=== PATIENT | female | born 1990 | race Caucasian/White ===

== ENCOUNTER 2018-12-15 20:52 | Emergency (ER) | payer OTHER ==
[~2018-12-15] VITALS: Ht 162.6 cm; Wt 79.5 kg
[~2018-12-15 20:52] MED LIST: BCP PO; GILDESS FE 1.5/1 TAB PO; IMITREX 25MG TA25 MG PO; NO HOME MEDICATIONS; PERCOCET 325 MG1 TA2 PO
[2018-12-15 21:06] VITALS: TEMP 97.5
[2018-12-15 21:16] LABS: COLLECTION METHOD CLEAN CATCH
[2018-12-15 21:24] LABS: PH 7 (5-8); SQUAMOUS EPITHELIAL 0-2 /hpf; URINE APPEARANCE Clear; URINE BACTERIA None Seen /hpf; URINE BILIRUBIN Negative (NEGATIVE); URINE BLOOD Negative (NEGATIVE); URINE COLOR Straw; URINE GLUCOSE Negative (NEGATIVE); URINE KETONE Negative (NEGATIVE); URINE LEUKOCYTE ESTERASE Negative (NEGATIVE); URINE NITRATE Negative (NEGATIVE); URINE PROTEIN(semi-quant) Negative (NEGATIVE); URINE RBC None Seen /hpf; URINE UROBILINOGEN Negative (NEGATIVE)
[2018-12-15 22:43] LABS: BASO % 0.4 % (0.0-2.0); EOS % 0.5 % (0-4.0); GRAN # 4.4 (1.4-6.5); GRAN % 52.9 % (42.2-75.2); HEMATOCRIT 40.7 % (37.0-47.0); HEMOGLOBIN 13.1 g/dl (12.5-16.0); LYMPH # 2.8 (1.2-3.4); LYMPH % 33.9 % (20.0-51.0); MEAN CELL VOLUME 84 fl (80.0-100.0); MEAN CORPUSCULAR HEMOGLOBIN 27 pg (27.0-31.0); MEAN CORPUSCULAR HGB CONC 32 g/dl (33.0-37.0); MEAN PLATELET VOLUME 9.1 fl (7.4-10.4); MONO % 12.1 % (1.7-9.3); PLATELET COUNT 344 K/mm3 (130-400); RED BLOOD COUNT 4.86 M/mm3 (4.10-5.30); REDCELL DISTRIBUTION WIDTH-CV 12.8 % (11.5-14.5)
[2018-12-15] MEDS ORDERED: PRILOSEC 20MG20 MG PO (22:44)
[2018-12-15 22:58] LABS: ALANINE AMINOTRANSFERASE 12 U/L (9-52); ALBUMIN 4.7 gm/dL (3.5-5.0); ALKALINE PHOSPHATASE 98 U/L (50-136); ANION GAP 10 mmol/L (7-16); AST,SGOT 27 U/L (15-37); BILIRUBIN,TOTAL 0.2 mg/dL (0.0-1.0); BLOOD UREA NITROGEN 13 mg/dL (7-17); CALCIUM 9.5 mg/dL (8.4-10.2); CARBON DIOXIDE 25 mmol/L (22-30); CHLORIDE 105 mmol/L (98-107); CREATININE, serum 0.61 mg/dL (0.52-1.25); GLUCOSE 102 mg/dL (74-106); LIPASE 96 U/L (23-300); POTASSIUM 3.9 mmol/L (3.4-5.0); SODIUM 139 mmol/L (137-145); TOTAL PROTEIN 8.5 gm/dL (6.4-8.2)
[2018-12-15 23:00] LABS: C-REACTIVE PROTEIN < 0.5 mg/dL (0.0-0.9)
[2018-12-15] MEDS ORDERED: NORCO 325 MG-51 TAB PO (23:54)
[2018-12-16 01:10] VITALS: BP 121/83; PULSE 93
== END 2018-12-16 01:55 | disposition home or self-care (01) ==
LOC: COL.ER 20:52
PROVIDERS: Emergency Medicine; Family Medicine
DX: K21.9 Gastro-esophageal reflux disease without esophagitis (principal); K80.50 Calculus of bile duct without cholangitis or cholecystitis without obstruction; K27.9 Peptic ulcer, site unspecified, unspecified as acute or chronic, without hemorrhage or perforation; Z98.890 Other specified postprocedural states; Z90.89 Acquired absence of other organs
CPT/HCPCS: J1885; J2405; J7030; Q9967

== ENCOUNTER 2018-12-18 06:41 | Day surgery (SDC) | payer OTHER ==
[~2018-12-18] VITALS: Ht 162.6 cm; Wt 80.6 kg
[~2018-12-18 06:41] MED LIST changes: +NORCO 325 MG-51 TAB PO; +PRILOSEC 20MG20 MG PO
[2018-12-18 07:06] VITALS: BP 133/81; PULSE 102; TEMP 97.2
[2018-12-18 08:30] VITALS: BP 126/91; PULSE 105; TEMP 98.3
--- NOTE | 2018-12-18 08:30 | NUR ---
TO [facility]AY 2 VIA CART FROM [facility] PT WALKED TO CHAIR, FAMILY IN ROOM, STATES SLIGHTLY NAUSEATED, WILL CON'T TO MONITOR, CALL LIGHT IN REACH
[2018-12-18 08:45] VITALS: BP 122/81; PULSE 100
[2018-12-18 09:00] VITALS: BP 118/68; PULSE 102
--- NOTE | 2018-12-18 09:00 | NUR ---
SIPS ON WATER, DECLINES SNACK
[2018-12-18 09:15] VITALS: BP 122/80; PULSE 95
--- NOTE | 2018-12-18 09:15 | NUR ---
DR PEÑA SEE PT AND FAMILY, IV D'CD INTACT, PT UP AND DRESSED
--- NOTE | 2018-12-18 09:30 | NUR ---
DISCHARGE INST. GIVEN WITH VERBAL UNDERSTANDNG, OFFICE WILL CALL ON APPT FOR HIDDA SCAN. PT DISCHARGED VIA W/C TO CAR
== END 2018-12-18 09:35 | disposition home or self-care (01) ==
LOC: SDCO 06:41
DX: K21.9 Gastro-esophageal reflux disease without esophagitis (principal)
CPT/HCPCS: J2250; J2405; J3010; J7030

== ENCOUNTER → 2018-12-25 | Outpatient (CLI) | payer OTHER | LOC: COL.RAD 06:41 | DX: R10.11 Right upper quadrant pain (principal) | CPT/HCPCS: A9537 ==

== ENCOUNTER 2019-01-02 11:59 | Emergency (ER) | payer OTHER ==
[~2019-01-02] VITALS: Ht 162.6 cm; Wt 79.5 kg
[2019-01-02 12:10] VITALS: TEMP 98.2
[2019-01-02 12:52] LABS: COLLECTION METHOD CLEAN CATCH
[2019-01-02 12:59] LABS: PH 7 (5-8); SQUAMOUS EPITHELIAL 0-2 /hpf; URINE APPEARANCE Clear; URINE BACTERIA Rare /hpf; URINE BILIRUBIN Negative (NEGATIVE); URINE BLOOD Negative (NEGATIVE); URINE COLOR Straw; URINE GLUCOSE Negative (NEGATIVE); URINE KETONE Negative (NEGATIVE); URINE LEUKOCYTE ESTERASE Negative (NEGATIVE); URINE NITRATE Negative (NEGATIVE); URINE PROTEIN(semi-quant) Negative (NEGATIVE); URINE RBC 0-2 /hpf; URINE UROBILINOGEN Negative (NEGATIVE)
[2019-01-02 13:09] LABS: BASO % 0.4 % (0.0-2.0); EOS # 0.1 (0.0-0.7); EOS % 0.5 % (0-4.0); GRAN # 6.4 (1.4-6.5); GRAN % 70.1 % (42.2-75.2); HEMATOCRIT 38.4 % (37.0-47.0); HEMOGLOBIN 12.2 g/dl (12.5-16.0); LYMPH # 1.9 (1.2-3.4); LYMPH % 21.2 % (20.0-51.0); MEAN CELL VOLUME 84 fl (80.0-100.0); MEAN CORPUSCULAR HEMOGLOBIN 27 pg (27.0-31.0); MEAN CORPUSCULAR HGB CONC 32 g/dl (33.0-37.0); MEAN PLATELET VOLUME 9.2 fl (7.4-10.4); MONO # 0.7 (0.1-0.6); MONO % 7.5 % (1.7-9.3); PLATELET COUNT 307 K/mm3 (130-400); RED BLOOD COUNT 4.57 M/mm3 (4.10-5.30); REDCELL DISTRIBUTION WIDTH-CV 12.7 % (11.5-14.5)
[2019-01-02 13:20] LABS: ALBUMIN 4.4 gm/dL (3.5-5.0); BILIRUBIN,TOTAL 0.5 mg/dL (0.0-1.0); CALCIUM 9.4 mg/dL (8.4-10.2); CREATININE, serum 0.64 (0.52-1.25); POTASSIUM 3.7 mmol/L (3.4-5.0); TOTAL PROTEIN 7.8 gm/dL (6.4-8.2)
[2019-01-02 13:21] LABS: C-REACTIVE PROTEIN 0.5 mg/dL (0.0-0.9)
[2019-01-02] MEDS ORDERED: ZOFRAN 4MG T4 MG/TAB PO (14:21)
[2019-01-02] MEDS ORDERED: NORCO 325 MG-7.1 TAB PO (14:21)
[2019-01-02 14:27] VITALS: BP 122/76; PULSE 88
== END 2019-01-02 14:28 | disposition home or self-care (01) ==
LOC: COL.ER 11:59
PROVIDERS: Physician Assistant
DX: K80.50 Calculus of bile duct without cholangitis or cholecystitis without obstruction (principal); K21.9 Gastro-esophageal reflux disease without esophagitis; Z87.442 Personal history of urinary calculi; Z98.890 Other specified postprocedural states; Z90.89 Acquired absence of other organs
CPT/HCPCS: J1170; J2405; J7030